=== PATIENT | male | born 1995 | race African-American/Black ===

== ENCOUNTER 2016-05-24 16:14 | Emergency (ER) | payer SELFPAY ==
[~2016-05-24] VITALS: Ht 180.3 cm; Wt 70.0 kg
[2016-05-24 16:16] VITALS: BP 137/80; PULSE 72; RESP 12; TEMP 98; O2SAT 100
--- NOTE | 2016-05-24 18:55 | PD ---
HPI Chief Complaint: Skin Problem Time Seen by Provider: 18:55 Travel History International Travel<30 days: No Contact w/Intl Traveler<30days: No Traveled to known affect area: No History of Present Illness HPI 21-year-old male presents to emergency department for evaluation of irritation, swelling, and cracking of his foreskin. Patient believes this is caused from a new soap irritation. States that he has had sexual intercourse but has been protected with the same person. Denies any urethral discharge but states that there is something under his foreskin. Denies any burning with urination. Denies any fever or chills. He also has left hip pain that he would like evaluated. Patient states that this is been intermittent for the last couple months and is exacerbated with activity or weightbearing. He does not recall any trauma. He has no other symptoms to report. PFSH Past Medical History Medical History: Denies Significant Hx Social History Alcohol Use: No Tobacco Use: No Substance Use: No Allergies-Medications (Allergen,Severity, Reaction): Coded Allergies: No Known Allergies (Unverified , 05/24/16) Reported Meds & Prescriptions Reported Meds & Active Scripts Active Clotrimazole Topical (Clotrimazole) 1% Soln 1 Applic TOPICAL BID 14 Days Augmentin (Amoxicillin-Clavulanate) 500-125 mg Tab 500 Mg PO Q8H 7 Days Review of Systems Except as stated in HPI: all other systems reviewed are Neg Physical Exam Narrative GENERAL: Well-nourished, well-developed male patient, ambulatory no acute distress SKIN: Warm and dry. HEAD: Normocephalic. EYES: No scleral icterus. No injection or drainage. NECK: Supple, trachea midline. No JVD or lymphadenopathy. CARDIOVASCULAR: Regular rate and rhythm without murmurs, gallops, or rubs. RESPIRATORY: Breath sounds equal bilaterally. No accessory muscle use. GASTROINTESTINAL: Abdomen soft, non-tender, nondistended. GENITOURINARY: Done in presence of a tech. Uncircumcised. Foreskin is inflamed and the distal end with cracks and a discharge noted. Testes descended bilaterally without evidence of rotation. No lesions or erythema. No urethral discharge. MUSCULOSKELETAL: No cyanosis, or edema. BACK: Nontender without obvious deformity. No CVA tenderness. Data Data Last Documented VS Vital Signs Date Time Temp Pulse Resp B/P Pulse Ox O2 Delivery O2 Flow Rate FiO2 05/24/16 16:16 98.0 72 12 137/80 100 Room Air Orders Urinalysis - C+S If Indicated (05/24/16 19:16) Gc And Chlamydia Pcr (05/24/16 19:16) Hip, Uni(Ap&Lat) W Ap Pelvis (05/24/16 ) Wound Culture And Gram Stain (05/24/16 19:22) MDM Medical Decision Making Medical Screen Exam Complete: Yes Emergency Medical Condition: Yes Medical Record Reviewed: Yes Differential Diagnosis Balanitis versus UTI versus STD Narrative Course 21-year-old male presents to the emergency department for evaluation. Patient appears without distress. He does have an inflamed foreskin that is cracked with a discharge. No urethral discharge. Culture is obtained. Urinalysis is sent. X-ray imaging of the left hip is without acute bony abnormality. MRI if symptoms persist may be warranted. Patient will be started on treatment for balanitis. He is counseled on care. He agrees to return immediately with any acute dyspnea symptoms. Diagnosis Primary Impression: Balanitis Additional Impression: Hip pain, left Referrals: Primary Care Physician Patient Instructions: Balanitis (ED), General Instructions Additional Instructions: Avoid abrasive and acidic soaps Proper hygiene is advised Follow-up with a primary care provider Ibuprofen as directed on package as needed for hip pain Avoid activity that exacerbates pain Return immediately to the emergency department with any acute worsening of symptoms Med/Other Pt SpecificInfo: Prescription(s) given Scripts Clotrimazole Topical 1% Soln1 Applic TOPICAL BID 14 Days Ref 0 Prov:Paris Mora 05/24/16 Amoxicillin-Clavulanate (Augmentin)500-125 mg [id number] Mg PO Q8H 7 Days Ref 0 Prov:Paris Mora 05/24/16 Disposition: 01 DISCHARGE HOME Condition: Stable Paris Mora May 24, 2016 18:55
[2016-05-24] MEDS ORDERED: CLOTR1%T TOPICAL (19:26)
[2016-05-24] MEDS ORDERED: AUGM500T7 PO (19:26)
--- NOTE | 2016-05-24 20:02 | RADRPT ---
EXAM DATE/TIME: 05/24/2016 19:46 [facility] COMPARISON: No previous studies available for comparison. INDICATIONS : Left hip pain after playing basketball two month ago. MEDICAL HISTORY : None. SURGICAL HISTORY : None. ENCOUNTER: Initial ACUITY: 2 months PAIN SCORE: 2/10 LOCATION: Left hip joint. FINDINGS: Examination of the left hip was performed with AP Pelvis. The primary and secondary trabecular patte rn of the femoral neck is intact. The hip joint is of normal width without significant sclerosis or bony hypertrophy. The acetabulum is grossly intact. CONCLUSION: Negative. MRI could be used for further evaluation if indicated. Anderson Wolff MD FACR on May 24, 2016 at 20:00 Board Certified Radiologist. This report was verified electronically.
[2016-05-24 20:36] LABS: BLOOD, URINE NEG (NEG); COMMENT (UR) CULTURE INDICATED; CULTURE IF INDICATED CULTURE INDICATED; GLUCOSE,URINE NEG (NEG); KETONE, URINE NEG (NEG); MUCUS URINE FEW /lpf (OCC); NITRITE,URINE NEG (NEG); PH, URINE 7.5 (5.0-8.5); SQUAMOUS EPITHELIAL CELL URINE <1 /hpf (0-5); URINE COLOR YELLOW (YELLW/STRAW)
[2016-05-24 22:57] LABS: CHLAMYDIA PCR DETECTED (NOT DETECT); NEISSERIA PCR NOT DETECTED (NOT DETECT)
== END 2016-05-24 20:44 | disposition home or self-care (01) ==
LOC: NETRI 16:14
DX: N48.1 Balanitis (principal); M25.552 Pain in left hip; R82.90 Unspecified abnormal findings in urine
CPT/HCPCS: 73502; 81001; 87070; 87086; 87205; 87491; 87591; 99283

== ENCOUNTER 2016-08-02 14:43 | Emergency (ER) | payer SELFPAY ==
[~2016-08-02] VITALS: Ht 182.9 cm; Wt 70.0 kg
[~2016-08-02 14:43] MED LIST: AUGM500T7 PO; CLOTR1%T TOPICAL
[2016-08-02 14:48] VITALS: BP_SYST 125; BP_SYST 133; BP_DIAS 76; BP_DIAS 79; PULSE 100; PULSE 79; RESP 15; TEMP 98; O2SAT 95
--- NOTE | 2016-08-02 16:06 | PD ---
HPI Chief Complaint: ENT Complaint Time Seen by Provider: 16:01 Travel History International Travel<30 days: No Contact w/Intl Traveler<30days: No Traveled to known affect area: No History of Present Illness HPI 21-year-old male presents emergency Department with complaint of sore throat since Monday. Denies lump in throat, difficulty swallowing, unusual drooling. Reports painful swallowing. Also reports nasal congestion and cough. Denies headache, body aches, nausea, vomiting, abdominal pain. Saw his school nurse yesterday and was told he had a fever 102.0. She gave him ibuprofen. He saw his nurse again today and she told him to come to the ER for evaluation. He has not taken any medications for his symptoms today. Has not tried any treatments to alleviate symptoms. No known allergies. Denies significant past medical history. No other modifying factors or associated signs and symptoms. PFSH Social History Alcohol Use: No Tobacco Use: No Substance Use: No Allergies-Medications (Allergen,Severity, Reaction): Coded Allergies: No Known Allergies (Unverified , 08/02/16) Reported Meds & Prescriptions Reported Meds & Active Scripts Active Magic Mouthwash Pediatric/Adult Liq (Lidocaine/Diphenhydr/Alum/Mg/Simeth) 60 Ml Susp 5 Ml SWISH-SPIT Q3HR PRN Each 5mL contains: Diphenydramine 4.5mg, Viscous Lidocaine 2% 10mg, Maalox Advanced Regular Strength 2.7ml Ibuprofen 800 Mg Tab 800 Mg PO Q6HR PRN Clotrimazole Topical (Clotrimazole) 1% Soln 1 Applic TOPICAL BID 14 Days Augmentin (Amoxicillin-Clavulanate) 500-125 mg Tab 500 Mg PO Q8H 7 Days Review of Systems Except as stated in HPI: all other systems reviewed are Neg Physical Exam Narrative GENERAL: Well-nourished, well-developed male patient, in no acute distress; afebrile, nontoxic-appearing SKIN: Warm and dry. No rash. HEAD: Atraumatic. Normocephalic. EYES: Pupils equal and round at 3 mm with brisk reaction. No scleral icterus. No injection or drainage. PERRLA. ENT: Mucosa pink and moist. Oropharynx with erythema; without edema or exudates. No uvular edema. No uvular, palatal, or tonsillar deviation. Airway patent. EARS: Bilateral pinnae and external canals appear within normal limits. Bilateral tympanic membranes without erythema, dullness or perforation. NECK: Trachea midline. No lymphadenopathy. CARDIOVASCULAR: Regular rate and rhythm. No murmur appreciated. RESPIRATORY: No accessory muscle use. Clear to auscultation. Breath sounds equal bilaterally. GASTROINTESTINAL: Abdomen soft, non-tender, nondistended. Hepatic and splenic margins not palpable. Bowel sounds are active 4 quadrants. MUSCULOSKELETAL: No obvious deformities. No clubbing. No cyanosis. No edema. NEUROLOGICAL: Awake and alert. Oriented 3. No obvious cranial nerve deficits. Motor grossly within normal limits. Normal speech. Moves all extremities. 5/5 strength to all extremities. PSYCHIATRIC: Appropriate mood and affect; insight and judgment normal. Data Data Last Documented VS Vital Signs Date Time Temp Pulse Resp B/P Pulse Ox O2 Delivery O2 Flow Rate FiO2 08/02/16 14:48 98.0 79 15 133/79 95 Orders Group A Rapid Strep Screen (08/02/16 15:59) Influenzae A/B Antigen (08/02/16 15:59) Strep Culture (Group A) (08/02/16 14:30) MDM Medical Decision Making Medical Screen Exam Complete: Yes Emergency Medical Condition: Yes Medical Record Reviewed: Yes Differential Diagnosis Viral illness, influenza, strep pharyngitis, upper respiratory infection Narrative Course 21-year-old male with cold/flu symptoms since Monday. His main complaint is sore throat. Denies lump in throat, difficulty swallowing, unusual drooling. Patient is afebrile and nontoxic-appearing. MAXIMUM TEMPERATURE of 102.0 yesterday. I offered the patient a nonnarcotic while in the ER and he declined. Rapid strep and influenza ordered. 1658: Rapid strep negative. 1725: Influenza negative. Discussed viral illness and symptom management. Ibuprofen and Magic mouthwash prescribed for home. Patient verbalizes understanding and agreement with treatment plan. Patient is medically cleared and stable for discharge. Discussed reasons to return to the emergency department. Instructed patient to follow up with primary care provider. Patient agrees with treatment plan. The patients vital signs are stable and the patient is stable for outpatient follow-up and treatment. Patient discharged home, stable and in no acute distress. Diagnosis Primary Impression: Viral illness Referrals: Primary Care Physician Patient Instructions: Cold Symptoms (ED), General Instructions, Safe Use of Cough and Cold Medicines (ED) Departure Forms: School Release, Return to School Date: Aug 04, 2016 Tests/Procedures Additional Instructions: Ibuprofen or Tylenol as directed and as needed for pain and inflammation [id number] decongestants or antihistamines as directed and as needed for symptom management Drink plenty of fluids to prevent dehydration Use hot air humidifier to decrease cough exacerbation Turn off ceiling fans and sleep with head of bed elevated Avoid triggers such as second hand smoke, dust, known allergens Follow-up with your primary care provider Return to the emergency department immediately with worsening of symptoms Med/Other Pt SpecificInfo: Prescription(s) given Scripts [id number]-Simeth Liq (Magic Mouthwash Pediatric/Adult Liq)60 Ml Susp5 Ml SWISH-SPIT Q3HR PRN (SORE THROAT) #60 ML Ref 0 Each 5mL contains: Diphenydramine 4.5mg, Viscous Lidocaine 2% 10mg, Maalox Advanced Regular Strength 2.7ml Prov:Jessy Crump 08/02/16 Ibuprofen 800 Mg [id number] Mg PO Q6HR PRN (PAIN) #30 TAB Ref 0 Prov:Jessy Crump 08/02/16 Disposition: 01 DISCHARGE HOME Condition: Stable Jessy Crump Aug 02, 2016 16:06
[2016-08-02] MEDS ORDERED: IBUP800T23 PO (17:08)
[2016-08-02] MEDS ORDERED: MAGICPED SWISH-SPIT (17:08)
== END 2016-08-02 17:36 | disposition home or self-care (01) ==
LOC: NETRI 14:43
DX: B34.9 Viral infection, unspecified (principal)
CPT/HCPCS: 87081; 87804; 87880; 99283